=== PATIENT | male | born 1985 | race Caucasian/White ===

== ENCOUNTER 2018-02-28 00:01 | Emergency (ER) | payer MEDICAID, OTHER ==
[~2018-02-28] VITALS: Ht 180.3 cm; Wt 72.7 kg
[2018-02-28 00:22] VITALS: BP 130/86
== END 2018-02-28 01:49 ==
LOC: ER 00:01
DX: F15.10 Other stimulant abuse, uncomplicated (principal); Z02.89 Encounter for other administrative examinations
CPT/HCPCS: 99283